=== PATIENT | female | born 1995 | race Caucasian/White ===

== ENCOUNTER → 2017-09-12 | Outpatient (REF) | payer OTHER | LOC: M LAB REF 14:33 | DX: J02.9 Acute pharyngitis, unspecified (principal) ==

== ENCOUNTER → 2017-09-23 | Outpatient (REF) | payer OTHER | LOC: M LAB REF 19:28 | DX: J02.9 Acute pharyngitis, unspecified (principal) ==

== ENCOUNTER 2020-07-27 19:42 | Emergency (ER) | payer OTHER ==
[~2020-07-27] VITALS: Ht 160 cm; Wt 56.3 kg
[2020-07-27] MEDS ORDERED: IBUPOTC PO (19:48)
[2020-07-27] MEDS ORDERED: ACET-683 PO (19:48)
--- NOTE | 2020-07-27 21:49 | REPVR ---
PROCEDURE INFORMATION: Exam: CT Head Without Contrast Exam date and time: 07/27/2020 9:08 PM Age: 25 years old Clinical indication: Pain; Headache; Additional info: Trauma temporal, SIMS, ruptured tm blood canal, tinnitis TECHNIQUE: Imaging protocol: Computed tomography of the head without contrast. Radiation optimization: All CT scans at this facility use at least one of these dose optimization techniques: automated exposure control; mA and/or kV adjustment per patient size (includes targeted exams where dose is matched to clinical indication); or iterative reconstruction. COMPARISON: No relevant prior studies available. FINDINGS: Brain: Normal. No hemorrhage. Unremarkable white matter. No mass effect. Cerebral ventricles: No ventriculomegaly. Bones/joints: Unremarkable. No acute fracture. Paranasal sinuses: Visualized sinuses are unremarkable. No fluid levels. Mastoid air cells: Visualized mastoid air cells are well aerated. Soft tissues: Unremarkable. IMPRESSION: No acute intracranial abnormality. Electronically signed by: Derick Monet On 07/27/2020 21:50:02 PM
[2020-07-27 21:54] VITALS: BP 119/71
[2020-07-27] MEDS ORDERED: CORTISPORIN OTIC SOLN 10 ML BTL AD ONE (22:15)
[2020-07-27] MEDS ORDERED: CIPRODEX AD (22:19)
[2020-07-27] MEDS ORDERED: CIPRODEX OTIC SUSP 7.5ML AD STA (22:19)
[2020-07-28] MEDS ORDERED: OFLOSO OTIC (15:13)
== END 2020-07-27 22:38 | disposition home or self-care (01) ==
LOC: M ED 19:42
DX: H72.91 Unspecified perforation of tympanic membrane, right ear (principal)

== ENCOUNTER → 2020-08-02 | Outpatient (CLI) | payer SELFPAY ==
[~2020-08-02] MED LIST: ACET-683 PO; CIPRODEX AD; IBUPOTC PO; KEFL500C17 PO; OFLOSO OTIC
== END ==
LOC: M LABSMTC 10:53
PROVIDERS: ATTEND Pediatrics
DX: Z20.822 Contact with and (suspected) exposure to COVID-19 (principal)

== ENCOUNTER 2020-08-04 18:45 | Emergency (ER) | payer OTHER ==
[~2020-08-04] VITALS: Ht 160 cm; Wt 53.2 kg
[~2020-08-04 18:45] MED LIST changes: -KEFL500C17 PO
--- OUTSIDE RECORDS SUMMARY | 2020-08-04 18:49 | CCD | Continuity of Care Document ---
Author Author Serenity ZHAO MD Organization Unknown Address [address] [address] Phone [phone] Care Team Providers Care Wood Flour Miller Name Role Phone German Das D.O. AUTM [phone] No PCP AUTM Unavailable Problems Description No Information Available Social History Type Date Description Comments Sex Unknown ETOH Use Denies alcohol use Tobacco Use Start: Unknown Non Smoker Recreational Drug Use Denies Drug Use Allergies, Adverse Reactions, Alerts Description No Known Drug Allergies Medications Active Medications SIG Qnty Indications Ordering Provide r Date Multivitamin Adult Tablets 1 by mouth every day Unknown Ibuprofen 200mg Capsules as n eeded Unknown Immunizations Description No Information Available Vital Signs Date Vital Result Comment 07/31/2020 1:11pm Height 63 inches 5'3" Weight 117.00 lb BMI (Body Mass Index) 20.7 kg/m2 [place] Body Weight 115 lb Weight 53.071 kg BSA (Body Surface Area) 1.54 m2 Results Description No Information Available Procedures Description No Information Available Medical Devices Description No Information Available Encounters Description No Information Available Assessments Description No Information Available Plan of Treatment No Information Available Functional Status Description No Information Available Mental Status Description No Information Available Referrals Refer to Reason for Referral Status Appt Date Derik Zhao M.D. INJURY RT EAR Scheduled 07/31/[address] [address] [phone]
--- OUTSIDE RECORDS SUMMARY | 2020-08-04 18:49 | CCD ---
Author Author [facility] Organization [facility] Address Unknown Phone Unavailable Support Name Relationship Address Phone M[place] [address] CHARBEL CROSS Next Of Kin [address] [place] [address] ST Next Of Kin Unknown Unavailable TAYANDRESLEE Next Of Kin [address] [place] [address] RHODA CROSS Next Of Kin [address] [place] [address] Re-disclosure Warning The records that you are about to access may contain information from federally-assisted alcohol or drug abuse programs. If such information is present, then the following federally mandated warning applies: This information has been disclosed to you from records protected by federal confidentiality rules (42 CFR part 2). The federal rules prohibit you from making any further disclosure of this information unless further disclosure is expressly permitted by the written consent of the person to whom it pertains or as otherwise permitted by 42 CFR part 2. A general authorization for the release of medical or other information is NOT sufficient for this purpose. The Federal rules restrict any use of the information to criminally investigate or prosecute any alcohol or drug abuse patient.The records that you are about to access may contain highly sensitive health information, the redisclosure of which is protected by Article 27-F of the [facility] Public Health law. If you continue you may have access to information: Regarding HIV / AIDS; Provided by facilities licensed or operated by the [facility] Office of Mental Health; or Provided by the [facility] Office for People With Developmental Disabilities. If such information is present, then the following [facility] mandated warning applies: This information has been disclosed to you from confidential records which are protected by state law. State law prohibits you from making any further disclosure of this information without the specific written consent of the person to whom it pertains, or as otherwise permitted by law. Any unauthorized further disclosure in violation of state law may result in a fine or senior living sentence or both. A general authorization for the release of medical or other information is NOT sufficient authorization for further disc losure. Family History Family Member Name Family Member Gender Family Member Status Date o f Status Description Data Source(s) Unknown Unknown Problem [facility] ([facility]) Medications Medication Brand Name Start Date Product Form Dose Route Admi nistrative Instructions Pharmacy Instructions Status Indications Reaction Description Data Source(s) 0.3 % 07/28/2020 12:00:00 AM EST drops 5 INSTILL FIVE DROPS IN THE AFFECTED EAR(S) TWICE A DAY INSTILL FIVE DROPS IN THE AFFECTED EAR(S) TWICE A DAY SOLD: 07/28/2020 [facility] Insurance Providers Payer name Policy type / Coverage type Policy ID Covered constitution party ID Covered constitution party's relationship to penn Policy Penn Plan Information GUILLE [id number] SP [id number] SELF PAY ONLY [id number] SP [id number] [facility] COMMUNITY PLAN MCDHMO [id number] SP [id number] [facility] COMMUNITY PLAN XIX [id number] 18 [id number] [facility] COMMUNITY PLAN XIX [id number] [facility] O [id number] S [id number] [facility] COMMUNITY PLAN MCDO [id number] SP [id number] [facility] Health Maintenance Organization (HMO) [id number] Self [id number] [facility] Health Maintenance Organization (HMO) [id number] Self [id number] [employer] [place] PPO [id number] Results ID Date Data Source [id number] 08/01/2020 12:00:00 AM EST [facility] Name Value Range Interpretation Code Description Data Aaliyah rce(s) Supporting Document(s) Carestart Rapid COVID Antigen Test Positive [facility] This lab was reported by [facility] phu. ID Date Data Source [id number] 05/06/2020 12:00:00 PM EDT [facility] Name Value Range Interpretation Code Description Data Aaliyah rce(s) Supporting Document(s) SARS coronavirus 2 RNA [facility] This lab was ordered by [facility] and reported by [facility]. ID Date Data Source [id number] 04/29/2020 08:00:00 AM EDT [facility] Name Value Range Interpretation Code Description Data Aaliyah rce(s) Supporting Document(s) SARS coronavirus 2 RNA [facility] This lab was ordered by [facility] and reported by [facility]. ID Date Data Source [id number] 04/22/2020 02:20:00 PM EDT [facility] Name Value Range Interpretation Code Description Data Aaliyah rce(s) Supporting Document(s) SARS coronavirus 2 RNA [facility] This lab was ordered by [facility] and reported by [facility]. ID Date Data Source [id number] 04/15/2020 12:43:00 PM EDT [facility] Name Value Range Interpretation Code Description Data Aaliyah rce(s) Supporting Document(s) SARS coronavirus 2 RNA [facility] This lab was ordered by [facility] and reported by [facility]. ID Date Data Source [id number] 04/01/2020 07:50:00 AM EDT [facility] Name Value Range Interpretation Code Description Data Aaliyah rce(s) Supporting Document(s) SARS coronavirus 2 RNA [facility] This lab was ordered by [facility] and reported by [facility]. ID Date Data Source [id number] 03/25/2020 11:00:00 AM EDT [facility] Name Value Range Interpretation Code Description Data Aaliyah rce(s) Supporting Document(s) SARS coronavirus 2 RNA [facility] This lab was ordered by [facility] and reported by [facility]. ID Date Data Source [id number] 03/18/2020 02:01:00 PM EDT [facility] Name Value Range Interpretation Code Description Data Aaliyah rce(s) Supporting Document(s) SARS coronavirus 2 RNA [facility] This lab was ordered by [facility] and reported by [facility]. ID Date Data Source [id number] 02/12/2020 10:00:00 AM EDT [facility] Name Value Range Interpretation Code Description Data Aaliyah rce(s) Supporting Document(s) SARS coronavirus 2 RNA [facility] This lab was ordered by [facility] and reported by [facility]. ID Date Data Source [id number] 02/05/2020 11:08:00 AM EDT [facility] Name Value Range Interpretation Code Description Data Aaliyah rce(s) Supporting Document(s) SARS coronavirus 2 RNA [facility] This lab was ordered by [facility] and reported by [facility]. ID Date Data Source [id number] 01/29/2020 11:28:00 AM EDT [facility] Name Value Range Interpretation Code Description Data Aaliyah rce(s) Supporting Document(s) SARS coronavirus 2 RNA [facility] This lab was ordered by [facility] and reported by [facility]. ID Date Data Source [id number] 01/22/2020 11:43:00 AM EDT [facility] Name Value Range Interpretation Code Description Data Aaliyah rce(s) Supporting Document(s) SARS CORONAVIRUS 2 RNA [facility] This lab was ordered by [facility] and reported by [facility]. ID Date Data Source [id number] 01/15/2020 09:09:00 AM EDT [facility] Name Value Range Interpretation Code Description Data Aaliyah rce(s) Supporting Document(s) SARS CORONAVIRUS 2 RNA [facility] This lab was ordered by [facility] and reported by [facility]. ID Date Data Source [id number] 01/08/2020 11:49:00 AM EDT [facility] Name Value Range Interpretation Code Description Data Aaliyah rce(s) Supporting Document(s) SARS CORONAVIRUS 2 RNA [facility] This lab was ordered by [facility] and reported by [facility]. ID Date Data Source [id number] 01/01/2020 06:00:00 AM EDT [facility] Name Value Range Interpretation Code Description Data Aaliyah rce(s) Supporting Document(s) SARS CORONAVIRUS 2 RNA [facility] This lab was ordered by [facility] and reported by [facility]. ID Date Data Source [id number] 12/28/2019 05:30:00 AM EDT [facility] Name Value Range Interpretation Code Description Data Aaliyah rce(s) Supporting Document(s) SARS CORONAVIRUS 2 RNA [facility] This lab was ordered by [facility] and reported by [facility]. ID Date Data Source [id number] 12/25/2019 11:19:00 AM EDT [facility] Name Value Range Interpretation Code Description Data Aaliyah rce(s) Supporting Document(s) SARS CORONAVIRUS 2 RNA [facility] This lab was ordered by [facility] and reported by [facility]. ID Date Data Source [id number] 12/19/2019 11:36:00 AM EDT [facility] Name Value Range Interpretation Code Description Data Aaliyah rce(s) Supporting Document(s) SARS CORONAVIRUS 2 RNA [facility] This lab was ordered by [facility] and reported by [facility]. ID Date Data Source [id number] 12/13/2019 06:00:00 AM EDT [facility] Name Value Range Interpretation Code Description Data Aaliyah rce(s) Supporting Document(s) SARS CORONAVIRUS 2 RNA [facility] This lab was ordered by [facility] and reported by [facility]. ID Date Data Source [id number] 12/11/2019 11:00:00 AM EDT [facility] Name Value Range Interpretation Code Description Data Aaliyah rce(s) Supporting Document(s) SARS CORONAVIRUS 2 RNA [facility] This lab was ordered by [facility] and reported by [facility]. Procedure Vital Signs ID Date Data Source UNK Name Value Range Interpretation Code Description Data Source(s) Body surface area Derived from formula 1.54 m2 1.54 m2 [facility] ([facility]) Body weight 53.071 kg 53.071 kg [facility] ([facility]) [place] body weight 115 [lb_av] 115 [facility]_av[facility] Body mass index (BMI) [Ratio] 20.7 kg/m2 20.7 k g/m2 [facility] ([facility]) Body weight 117.00 [lb_av] 117.00 [lb_av] [facility] Body height 63 [in_i] 63 [in_i] [facility] ([facility]) 5'3"
[2020-08-04] MEDS ORDERED: KEFL500C17 PO ×2 (19:49→20:00)
--- OUTSIDE RECORDS SUMMARY | 2020-08-04 19:55 | CCD ---
Author Author [facility] Organization [facility] Address Unknown Phone Unavailable Support Name Relationship Address Phone MEL[place] [address] CHARBEL CROSS Next Of Kin [address] [place] [address] ST Next Of Kin Unknown Unavailable TAYANDRESLEE Next Of Kin [address] [place] [address] RHODA CROSS Next Of Kin [address] [place] [address] Re-disclosure Warning The records that you are [...] is protected by Article 27-F of the [facility] Public Health law. If you continue you may have access to information: Regarding HIV / AIDS; Provided by facilities licensed or operated by the [facility] Office of Mental Health; or Provided by the [facility] Office for People With Developmental Disabilities. If such information is present, then the following [facility] mandated warning applies: This information has [...] type / Coverage type Policy ID Covered green party ID Covered green party's relationship to penn Policy Penn Plan Information GUILLE [id number] SP [id number] SELF PAY ONLY [id number] SP [id number] [facility] COMMUNITY PLAN MCDHMO [id number] SP [id number] [facility] COMMUNITY PLAN XIX [id number] 18 [id number] [facility] COMMUNITY PLAN XIX [id number] 18 [id number] [facility] O [id number] S [id number] [facility] COMMUNITY PLAN MCDO [id number] SP [id number] [facility] Health Maintenance Organization (HMO) [id number] Self [id number] [facility] Health Maintenance Organization (HMO) [id number] Self [id number] [employer] [place] PPO 302/307 [id number] Results ID Date Data Source [id number] 08/01/2020 12:00:00 AM EST [facility] Name Value Range Interpretation Code Description Data Aaliyah rce(s) Supporting Document(s) Carestart Rapid COVID Antigen Test Positive [facility] This lab was reported by [facility] phu. ID Date Data Source [id number] 05/06/2020 12:00:00 PM EDT [facility] Name Value Range Interpretation Code Description Data Aaliyah rce(s) Supporting Document(s) SARS coronavirus 2 RNA [facility] This lab was ordered by [facility] and reported by [facility]. ID Date Data Source [id number] 04/29/2020 08:00:00 AM EDT [facility] Name Value Range Interpretation Code Description Data Aaliyah rce(s) Supporting Document(s) SARS coronavirus 2 RNA [facility] This lab was ordered by [facility] and reported by [facility]. ID Date Data Source [id number] 04/22/2020 02:20:00 PM EDT [facility] Name Value Range Interpretation Code Description Data Aaliyah rce(s) Supporting Document(s) SARS coronavirus 2 RNA [facility] This lab was ordered by [facility] and reported by [facility]. ID Date Data Source [id number] 04/15/2020 12:43:00 PM EDT [facility] Name Value Range Interpretation Code Description Data Aaliyah rce(s) Supporting Document(s) SARS coronavirus 2 RNA [facility] This lab was ordered by [facility] and reported by [facility]. ID Date Data Source [id number] 04/01/2020 07:50:00 AM EDT [facility] Name Value Range Interpretation Code Description Data Aaliyah rce(s) Supporting Document(s) SARS coronavirus 2 RNA [facility] This lab was ordered by [facility] and reported by [facility]. ID Date Data Source [id number] 03/25/2020 11:00:00 AM EDT [facility] Name Value Range Interpretation Code Description Data Aaliyah rce(s) Supporting Document(s) SARS coronavirus 2 RNA [facility] This lab was ordered by [facility] and reported by [facility]. ID Date Data Source [id number] 03/18/2020 02:01:00 PM EDT [facility] Name Value Range Interpretation Code Description Data Aaliyah rce(s) Supporting Document(s) SARS coronavirus 2 RNA [facility] This lab was ordered by [facility] and reported by [facility]. ID Date Data Source [id number] 02/12/2020 10:00:00 AM EDT [facility] Name Value Range Interpretation Code Description Data Aaliyah rce(s) Supporting Document(s) SARS coronavirus 2 RNA [facility] This lab was ordered by [facility] and reported by [facility]. ID Date Data Source [id number] 02/05/2020 11:08:00 AM EDT [facility] Name Value Range Interpretation Code Description Data Aaliyah rce(s) Supporting Document(s) SARS coronavirus 2 RNA [facility] This lab was ordered by [facility] and reported by [facility]. ID Date Data Source [id number] 01/29/2020 11:28:00 AM EDT [facility] Name Value Range Interpretation Code Description Data Aaliyah rce(s) Supporting Document(s) SARS coronavirus 2 RNA [facility] This lab was ordered by [facility] and reported by [facility]. ID Date Data Source [id number] 01/22/2020 11:43:00 AM EDT [facility] Name Value Range Interpretation Code Description Data Aaliyah rce(s) Supporting Document(s) SARS CORONAVIRUS 2 RNA [facility] This lab was ordered by [facility] and reported by [facility]. ID Date Data Source [id number] 01/15/2020 09:09:00 AM EDT [facility] Name Value Range Interpretation Code Description Data Aaliyah rce(s) Supporting Document(s) SARS CORONAVIRUS 2 RNA [facility] This lab was ordered by [facility] and reported by [facility]. ID Date Data Source [id number] 01/08/2020 11:49:00 AM EDT [facility] Name Value Range Interpretation Code Description Data Aaliyah rce(s) Supporting Document(s) SARS CORONAVIRUS 2 RNA [facility] This lab was ordered by [facility] and reported by [facility]. ID Date Data Source [id number] 01/01/2020 06:00:00 AM EDT [facility] Name Value Range Interpretation Code Description Data Aaliyah rce(s) Supporting Document(s) SARS CORONAVIRUS 2 RNA [facility] This lab was ordered by [facility] and reported by [facility]. ID Date Data Source [id number] 12/28/2019 05:30:00 AM EDT [facility] Name Value Range Interpretation Code Description Data Aaliyah rce(s) Supporting Document(s) SARS CORONAVIRUS 2 RNA [facility] This lab was ordered by [facility] and reported by [facility]. ID Date Data Source [id number] 12/25/2019 11:19:00 AM EDT [facility] Name Value Range Interpretation Code Description Data Aaliyah rce(s) Supporting Document(s) SARS CORONAVIRUS 2 RNA [facility] This lab was ordered by [facility] and reported by [facility]. ID Date Data Source [id number] 12/19/2019 11:36:00 AM EDT [facility] Name Value Range Interpretation Code Description Data Aaliyah rce(s) Supporting Document(s) SARS CORONAVIRUS 2 RNA [facility] This lab was ordered by [facility] and reported by [facility]. ID Date Data Source [id number] 12/13/2019 06:00:00 AM EDT [facility] Name Value Range Interpretation Code Description Data Aaliyah rce(s) Supporting Document(s) SARS CORONAVIRUS 2 RNA [facility] This lab was ordered by [facility] and reported by [facility]. ID Date Data Source [id number] 12/11/2019 11:00:00 AM EDT [facility] Name Value Range Interpretation Code Description Data Aaliyah rce(s) Supporting Document(s) SARS CORONAVIRUS 2 RNA [facility] This lab was ordered by [facility] and reported by [facility]. Procedure Vital Signs ID Date Data Source UNK Name Value Range Interpretation Code Description Data Source(s) Body surface area Derived from formula 1.54 m2 1.54 m2 [facility] ([facility]) Body weight 53.071 kg 53.071 kg [facility] ([facility]) [place] body weight 115 [lb_av] 115 [facility]_av] [facility] Body mass index (BMI) [Ratio] 20.7 kg/m2 20.7 k g/m2 [facility] ([facility]) Body weight 117.00 [lb_av] 117.00 [lb_av] [facility] Body height 63 [in_i] 63 [in_i] [facility] ([facility]) 5'3"
[2020-08-04 20:00] VITALS: BP 118/81
== END 2020-08-04 20:00 | disposition home or self-care (01) ==
LOC: M ED 18:45
DX: N61.0 Mastitis without abscess (principal); S20.151A Superficial foreign body of breast, right breast, initial encounter; Y92.9 Unspecified place or not applicable; Y93.9 Activity, unspecified; Y99.9 Unspecified external cause status; Z79.899 Other long term (current) drug therapy

== ENCOUNTER → 2020-08-26 | Outpatient (REF) | payer OTHER ==
[~2020-08-26] MED LIST changes: +KEFL500C17 PO
[2020-08-26 21:09] LABS: CHLAMYDIA DNA AMPLIFICATION NEGATIVE (NEGATIVE); GC DNA AMPLIFICATION NEGATIVE (NEGATIVE)
== END ==
LOC: M LAB REF 18:33
PROVIDERS: ATTEND Physician Assistant Medical
DX: Z11.3 Encounter for screening for infections with a predominantly sexual mode of transmission (principal)

== ENCOUNTER → 2020-09-12 | Outpatient (CLI) | payer OTHER ==
[~2020-09-12] MED LIST changes: +CIPR7.5D5 AD; -CIPRODEX AD
--- NOTE | 2020-09-12 09:59 | REP ---
INDICATION: N63.10 LUMP OF R BREAST. COMPARISON: None. TECHNIQUE: Whole breast sonography is performed as requested. Patient reports a 1 month history of retroareolar palpable lump which has decreased in size over time. FINDINGS: Scanning of the cyst level of the patient's palpable lump shows no abnormality. Slightly heterogeneous fibroglandular background echotexture is seen. In the 6 o'clock position, 4 cm from the nipple, there is a 0.4 cm cyst with enhanced through transmission and a benign appearance. The no mass is seen. No acoustic shadowing is noted. IMPRESSION: BI-RADS category 2 benign findings. Clinical follow-up is advised. A 0.4 cm cyst is observed at 6 o'clock in the right breast. This does not correspond with the palpable abnormality. <Electronically signed by Lester Terry > 09/12/20 0970
== END ==
LOC: M WHC 08:30
PROVIDERS: ATTEND Physician Assistant
DX: N63.10 Unspecified lump in the right breast, unspecified quadrant (principal)

== ENCOUNTER → 2020-10-10 | Outpatient (REF) | payer OTHER ==
[2020-10-10 13:58] LABS: HEMATOCRIT 36.9 % (36.0-47.0); HEMOGLOBIN 11.4 g/dl (12.0-15.5); MEAN CORPUSCULAR HEMOGLOBIN 21.1 pg (27.0-33.0); MEAN CORPUSCULAR HGB CONC 30.9 g/dl (32.0-36.5); MEAN CORPUSCULAR VOLUME 68.2 fl (80.0-96.0); PLATELET COUNT, AUTOMATED 198 10^3/uL (150-450); RED BLOOD COUNT 5.41 10^6/uL (4.00-5.40); WHITE BLOOD COUNT 11.1 10^3/uL (4.0-10.0)
[2020-10-10 14:37] LABS: ALBUMIN 4.3 GM/DL (3.2-5.2); ALT/SGPT 30 U/L (12-78); BILIRUBIN,TOTAL 0.5 MG/DL (0.2-1.0); BLOOD UREA NITROGEN 22 MG/DL (7-18); CALCIUM LEVEL 9.2 MG/DL (8.5-10.1); CARBON DIOXIDE LEVEL 26 MEQ/L (21-32); CHLORIDE LEVEL 106 MEQ/L (98-107); CHOLESTEROL LEVEL 167 MG/DL (<200); CHOLESTEROL RISK RATIO 2.168 (<5); CREATININE FOR GFR 0.98 MG/DL (0.55-1.30); FREE T4 1.01 NG/DL (0.76-1.46); GLOMERULAR FILTRATION RATE > 60.0 (>60); GLUCOSE, FASTING 84 MG/DL (70-100); HDL CHOLESTEROL 77 MG/DL (>40); LDL CHOLESTEROL 77 MG/DL (<100); NON-HDL-C 90 MG/DL; POTASSIUM SERUM 4.5 MEQ/L (3.5-5.1); SODIUM LEVEL 138 MEQ/L (136-145); TOTAL PROTEIN 7.3 GM/DL (6.4-8.2); TRIGLYCERIDES LEVEL 65 MG/DL (<150)
[2020-10-10 14:41] LABS: TOTAL 25(OH) VITAMIN D 66.9 NG/ML (30.0-100.0)
== END ==
LOC: M PLALAB 11:42
PROVIDERS: ATTEND Physician Assistant
DX: Z00.00 Encounter for general adult medical examination without abnormal findings (principal); Z13.29 Encounter for screening for other suspected endocrine disorder; Z13.220 Encounter for screening for lipoid disorders

== ENCOUNTER → 2021-02-16 | Outpatient (CLI) | payer OTHER ==
[2021-02-16 16:24] LABS: HEMATOCRIT 38.1 % (36.0-47.0); HEMOGLOBIN 12.3 g/dl (12.0-15.5); MEAN CORPUSCULAR HEMOGLOBIN 21.9 pg (27.0-33.0); MEAN CORPUSCULAR HGB CONC 32.3 g/dl (32.0-36.5); MEAN CORPUSCULAR VOLUME 67.8 fl (80.0-96.0); PLATELET COUNT, AUTOMATED 222 10^3/uL (150-450); RED BLOOD COUNT 5.62 10^6/uL (4.00-5.40)
[2021-02-16 16:41] LABS: ALBUMIN 4.1 GM/DL (3.2-5.2); ALT/SGPT 32 U/L (12-78); BILIRUBIN,TOTAL 0.5 MG/DL (0.2-1.0); BLOOD UREA NITROGEN 23 MG/DL (7-18); CALCIUM LEVEL 9.1 MG/DL (8.5-10.1); CARBON DIOXIDE LEVEL 28 MEQ/L (21-32); CHLORIDE LEVEL 105 MEQ/L (98-107); CREATININE FOR GFR 0.66 MG/DL (0.55-1.30); FERRITIN 68 NG/ML (8-252); FREE T4 0.88 NG/DL (0.76-1.46); GLOMERULAR FILTRATION RATE > 60.0 (>60); GLUCOSE, FASTING 93 MG/DL (70-100); IRON (FE) 62 UG/DL (50-170); PERCENT SATURATION 21.8 % (13.2-45.0); POTASSIUM SERUM 4.2 MEQ/L (3.5-5.1); SODIUM LEVEL 139 MEQ/L (136-145); TOTAL IRON BINDING CAPACITY 284 UG/DL (250-450); TOTAL PROTEIN 7.3 GM/DL (6.4-8.2)
== END ==
LOC: M WUC 12:02
PROVIDERS: ATTEND Physician Assistant
DX: D50.9 Iron deficiency anemia, unspecified (principal); R23.8 Other skin changes

== ENCOUNTER → 2021-02-17 | Outpatient (REF) | payer OTHER ==
[2021-02-17 13:08] LABS: INR 1.16; PROTHROMBIN TIME 15.1 SECONDS (12.5-14.3)
== END ==
LOC: M WUC 12:23
PROVIDERS: ATTEND Physician Assistant
DX: R23.8 Other skin changes (principal)